=== PATIENT | male | born 1950 | race Hispanic/Latino ===

== ENCOUNTER 2020-05-28 14:00 | Outpatient (RCR) | payer MEDICARE, SELFPAY | END 2020-05-29 23:59 | LOC: DC 14:00 | PROVIDERS: PCP Internal Medicine; Visit Provider Clinical Nurse Specialist | DX: Z71.3 Dietary counseling and surveillance (principal); E11.9 Type 2 diabetes mellitus without complications | CPT/HCPCS: 97802; G0108 ==

== ENCOUNTER 2020-06-19 13:02 | Outpatient (RCR) | payer MEDICARE, SELFPAY ==
[2013-12-26 13:22] VITALS: BMI 29.3
== END 2020-06-29 23:59 ==
LOC: DC 13:02
PROVIDERS: PCP Internal Medicine; Visit Provider Clinical Nurse Specialist
DX: Z71.3 Dietary counseling and surveillance (principal); E11.9 Type 2 diabetes mellitus without complications
CPT/HCPCS: 97803

== ENCOUNTER 2020-08-15 14:52 | Outpatient (RCR) | payer MEDICARE, SELFPAY ==
[2013-12-26 13:22] VITALS: BMI 29.3
== END 2020-08-29 23:59 ==
LOC: DC 14:52
PROVIDERS: PCP Internal Medicine; Visit Provider Clinical Nurse Specialist
DX: Z71.3 Dietary counseling and surveillance (principal); E11.9 Type 2 diabetes mellitus without complications
CPT/HCPCS: G0108

== ENCOUNTER 2020-08-30 10:25 | Outpatient (RCR) | payer MEDICARE, SELFPAY ==
[2013-12-26 13:22] VITALS: BMI 29.3
== END 2020-09-29 23:59 ==
LOC: DC 10:25
PROVIDERS: PCP Internal Medicine; Visit Provider Clinical Nurse Specialist
DX: Z71.3 Dietary counseling and surveillance (principal); E11.9 Type 2 diabetes mellitus without complications
CPT/HCPCS: G0109

== ENCOUNTER 2020-10-04 14:44 | Outpatient (RCR) | payer MEDICARE, SELFPAY ==
[2013-12-26 13:22] VITALS: BMI 29.3
== END 2020-10-29 23:59 ==
LOC: DC 14:44
PROVIDERS: PCP Internal Medicine; Visit Provider Clinical Nurse Specialist
DX: Z71.3 Dietary counseling and surveillance (principal); E11.9 Type 2 diabetes mellitus without complications

== ENCOUNTER 2020-11-01 09:30 | Outpatient (RCR) | payer MEDICARE, SELFPAY ==
[2013-12-26 13:22] VITALS: BMI 29.3
== END 2020-11-29 23:59 ==
LOC: DC 09:30
PROVIDERS: PCP Internal Medicine; Visit Provider Clinical Nurse Specialist
DX: Z71.3 Dietary counseling and surveillance (principal); E11.9 Type 2 diabetes mellitus without complications
CPT/HCPCS: G0109

== ENCOUNTER 2020-12-06 10:24 | Outpatient (RCR) | payer MEDICARE, SELFPAY ==
[2013-12-26 13:22] VITALS: BMI 29.3
== END 2020-12-30 23:59 ==
LOC: DC 10:24
PROVIDERS: PCP Internal Medicine; Visit Provider Clinical Nurse Specialist
DX: Z71.3 Dietary counseling and surveillance (principal); E11.9 Type 2 diabetes mellitus without complications
CPT/HCPCS: 97803

== ENCOUNTER 2021-01-23 10:07 | Outpatient (RCR) | payer MEDICARE, SELFPAY ==
[2013-12-26 13:22] VITALS: BMI 29.3
== END 2021-01-23 23:59 | disposition home or self-care (01) ==
LOC: DC 10:07
PROVIDERS: PCP Internal Medicine; Visit Provider Clinical Nurse Specialist
DX: E11.9 Type 2 diabetes mellitus without complications (principal)
CPT/HCPCS: 97803